=== PATIENT | male | born 1980 | race African-American/Black ===

== ENCOUNTER 2018-11-16 14:52 | Emergency (ER) | payer MEDICAID ==
[~2018-11-16] VITALS: Ht 182.9 cm; Wt 72.0 kg
[2018-11-16 14:58] VITALS: BP 115/64
[2018-11-16] MEDS ORDERED: KETOROLAC 60MG/2ML VIAL IM ONE (18:30)
== END 2018-11-16 19:32 | disposition home or self-care (01) ==
LOC: ER 14:52
DX: G89.29 Other chronic pain (principal); M54.5 Low back pain
CPT/HCPCS: 96372; 99283; J1885